=== PATIENT | male | born 1995 | race Caucasian/White ===

== ENCOUNTER 2020-07-08 12:03 | Emergency (ER) | payer BC, MEDICAID, OTHER ==
--- NOTE | 2020-07-08 12:45 | EDM.PDOC ---
ED HPI GENERAL MEDICAL PROBLEM - General Chief Complaint: Head Injury Stated Complaint: FELL OUT OF SHOWER AND HIT HEAD Time Seen by Provider: 07/08/20 12:30 Source of Information: Reports: Patient History Limitations: Reports: No Limitations - History of Present Illness INITIAL COMMENTS - FREE TEXT/NARRATIVE: 24-year-old male slipped when getting out of the shower and bumped his head on the edge of the counter. He hit the center of his forehead, no loss of consciousness but had some dizziness afterwards and 1 emesis. Because he vomited he thought he should get checked out. He was able to dress himself and drive him. No further vomiting, no visual complaints, denies any neck pain, significant headache or other symptoms. Onset: Sudden Duration: Hour(s): (About 1 hour ago) Location: Reports: Head Associated Symptoms: Reports: Nausea/Vomiting. Denies: Confusion, Chest Pain, Headaches, Syncope, Weakness Headache Pain Score (Numeric/FACES): 4 - Related Data Allergies Allergy/AdvReac Type Severity Reaction Status Date / Time No Known Allergies Allergy Verified 07/08/20 12:25 Home Meds: Home Meds NK [No Known Home Meds] 05/10/14 [History] Past Medical History Gastrointestinal History: Reports: GERD Neurological History: Reports: Concussion Endocrine/Metabolic History: Reports: Obesity/BMI 30+ - Past Surgical History Dermatological Surgical History: Reports: Other (See Below) Social & Family History - Tobacco Use Tobacco Use Status *Q: Never Tobacco User - Caffeine Use Caffeine Use: Reports: Energy Drinks, Soda - Recreational Drug Use Recreational Drug Use: No ED ROS GENERAL - Review of Systems Review Of Systems: See Below Constitutional: Denies: Fever, Chills HEENT: Denies: Vision Change Respiratory: Denies: Shortness of Breath Cardiovascular: Denies: Chest Pain GI/Abdominal: Reports: Nausea, Vomiting (1 emesis, feels better now) Skin: Reports: Erythema (Some erythema across the front of the forehead where he hit the counter) Neurological: Reports: Dizziness (Initially) ED EXAM, HEAD INJURY - Physical Exam Exam: See Below Exam Limited By: No Limitations General Appearance: Alert, No Apparent Distress Head: Other (Some erythema on the upper aspect of the center of the forehead, no swelling, hematoma, significant abrasion or bruising) Eyes: Bilateral Eye: EOMI, PERRL Neck: Non-Tender Respiratory: No Respiratory Distress Neurologic: No Motor/Sensory Deficits, Normal Mood/Affect, Oriented x 3, Other (Romberg is negative, no pronator drift) - Monique Coma Score Best Eye Response (Monique): (4) Open Spontaneously Best Verbal Response (Monique): (5) Oriented Best Motor Response (Central): (6) Obeys Commands Course - Vital Signs Last Recorded V/S: Last Vital Signs Temp 98.1 F 07/08/20 12:29 Pulse 93 07/08/20 12:29 Resp 16 07/08/20 12:29 BP 135/73 07/08/20 12:29 Pulse Ox 97 07/08/20 12:29 - Re-Assessments/Exams Free Text/Narrative Re-Assessment/Exam: 07/08/20 12:44 Isolated contusion on the front of the scalp, temporal areas not involved and no neurologic deficits. He may have had a mild concussion but no indication for CT at this time. Departure - Departure Time of Disposition: 12:50 Disposition: Home, Self-Care 01 Clinical Impression: Concussion with no loss of consciousness - Discharge Information Instructions: Post-Concussion Syndrome, [id number] Referrals: Luke Mcdaniel MD [Primary Care Provider] - Forms: ED Department Discharge Care Plan Goals: Rest today, ibuprofen or Tylenol may be helpful and increase activity as tolerated. Return if vomiting recurs and is persistent, you develop asymmetric weakness, visual complaints or other concerns. Otherwise recheck next week if not improving satisfactorily. Sepsis Event Note (ED) - Evaluation Sepsis Screening Result: No Definite Risk - Focused Exam Vital Signs: Vital Signs Temp Pulse Resp BP Pulse Ox 07/08/20 12:29 98.1 F 93 16 135/73 97 07/08/20 12:20 98.1 F 93 16 135/73 97
== END 2020-07-08 12:50 | disposition home or self-care (01) ==
LOC: JP.ED 12:03
DX: S06.0X0A Concussion without loss of consciousness, initial encounter (principal); E66.9 Obesity, unspecified; Z68.35 Body mass index [BMI] 35.0-35.9, adult; W01.10XA Fall on same level from slipping, tripping and stumbling with subsequent striking against unspecified object, initial encounter
CPT/HCPCS: 99282; 99283